=== PATIENT | male | born 1995 | race Caucasian/White ===

== ENCOUNTER 2024-02-28 15:21 | Emergency (ER) | payer OTHER ==
[~2024-02-28] VITALS: Ht 180.3 cm; Wt 94.0 kg
[2024-02-28] MEDS: LIDOCAINE 1% MDV 20ML VIAL SC ONE (21:25)
[2024-02-28] MEDS: BACTRIM 160MG/800MG DS TAB PO ONE (21:30)
[2024-02-28] MEDS ORDERED: IBUP-1022 PO (22:03)
[2024-02-28] MEDS ORDERED: BACT800T5 PO (22:03)
[2024-02-28 22:10] VITALS: BP 141/74; TEMP 98.5; O2SAT 95
== END 2024-02-28 22:16 | disposition home or self-care (01) ==
LOC: M ED 15:21
DX: L05.91 Pilonidal cyst without abscess (principal); Z79.1 Long term (current) use of non-steroidal anti-inflammatories (NSAID); Z79.2 Long term (current) use of antibiotics

== ENCOUNTER 2024-04-28 06:21 | Day surgery (SDC) | payer OTHER ==
[~2024-04-28] VITALS: Ht 180.3 cm; Wt 97.1 kg
[~2024-04-28 06:21] MED LIST: BACT800T5 PO; IBUP-1022 PO
[2024-04-28] MEDS ORDERED: ONDANSETRON 4MG 2ML VIAL As Ordered ONE (06:49)
[2024-04-28] MEDS ORDERED: ROCURONIUM BROMIDE 50MG/5ML VIAL As Ordered ONE (06:49)
[2024-04-28] MEDS ORDERED: propofoL 200 MG/20 ML VIAL As Ordered ONE (06:49)
[2024-04-28] MEDS ORDERED: LIDOCAINE 2% 100MG/5ML SDV (FOR ANES.) As Ordered ONE (06:49)
[2024-04-28] MEDS ORDERED: fentaNYL 100 MCG/2 ML INJECTION As Ordered ONE (06:50)
[2024-04-28] MEDS ORDERED: MIDAZOLAM INJ 2MG/2ML VIAL As Ordered ONE (06:50)
[2024-04-28 06:51] LABS: HEMATOCRIT 46.4 % (42.0-52.0); HEMOGLOBIN 16.5 g/dl (13.5-17.5); MEAN CORPUSCULAR HEMOGLOBIN 32.8 pg (27.0-33.0); MEAN CORPUSCULAR HGB CONC 35.6 g/dl (32.0-36.5); MEAN CORPUSCULAR VOLUME 92.2 fl (80.0-96.0); PLATELET COUNT, AUTOMATED 216 10^3/uL (150-450); RED BLOOD COUNT 5.03 10^6/uL (4.30-6.10); WHITE BLOOD COUNT 4.7 10^3/uL (4.0-10.0)
[2024-04-28] MEDS: CelecoXIB 400 MG CAP PO ONE (07:02)
[2024-04-28] MEDS ORDERED: LR 1,000 ML IV SCH (07:30)
[2024-04-28] MEDS: ceFAZolin SOD 2 GM in IV 1 EA IV ONE (07:50)
[2024-04-28] MEDS ORDERED: GLYCOPYRROLATE INJ 0.2 MG/ML 2 ML VIAL As Ordered ONE (08:03)
[2024-04-28] MEDS ORDERED: dexmedeTOMIDine (4MCG/ML)200MCG/50ML BTL (PRECEDEX) As Ordered ONE (08:19)
[2024-04-28] MEDS: LIDOCAINE 1% SDV 30ML VIAL As Ordered ONE (08:25)
[2024-04-28] MEDS ORDERED: SUGAMMADEX SODIUM 500 MG/5 ML VIAL (BRIDION) As Ordered ONE (08:25)
[2024-04-28] MEDS ORDERED: ePHEDrine SULFATE 25 MG/5 ML(5MG/ML) SYRINGE As Ordered ONE (08:26)
[2024-04-28] MEDS ORDERED: fentaNYL 100 MCG/2 ML INJECTION IV PRN (09:15)
[2024-04-28] MEDS ORDERED: ONDANSETRON 4MG 2ML VIAL IV PRN (09:15)
[2024-04-28] MEDS ORDERED: oxyCODONE 5MG TAB PO PRN (09:15)
[2024-04-28] MEDS ORDERED: MORPHINE 2 MG/ML 1ML VIAL IV PRN (09:15)
[2024-04-28 10:32] VITALS: BP 136/83; TEMP 97.6; O2SAT 96
== END 2024-04-28 10:36 | disposition home or self-care (01) ==
LOC: M SDC 06:21
PROVIDERS: ATTEND Surgery
DX: L05.91 Pilonidal cyst without abscess (principal); K21.9 Gastro-esophageal reflux disease without esophagitis; F17.218 Nicotine dependence, cigarettes, with other nicotine-induced disorders
CPT/HCPCS: 11770; 36415; 85027; J0665; J0690; J1100; J1596; J2250; J2405; J3010